=== PATIENT | female | born 1935 | race Caucasian/White ===

== ENCOUNTER 2020-07-17 01:33 | Inpatient (IN) | payer OTHER ==
[~2020-07-17] VITALS: Ht 157.5 cm; Wt 61.7 kg
[2020-07-17] MEDS ORDERED: AMLODIPINE BESY10 MG PO (01:58)
[2020-07-17] MEDS ORDERED: VITAMIN D31250 MCG PO (02:03)
[2020-07-17] MEDS ORDERED: ISOSORBIDE MONO30 MG PO (02:05)
[2020-07-17] MEDS ORDERED: GABAPENTIN600 MG PO (02:05)
[2020-07-17] MEDS ORDERED: ELIQUIS2.5 MG PO (02:06)
[2020-07-17] MEDS ORDERED: NITROGLYCERIN0.4 MG SL (02:07)
[2020-07-17] MEDS ORDERED: LISINOPRIL40 MG PO (02:08)
[2020-07-17] MEDS ORDERED: IRON325 M1 PO (02:09)
[2020-07-17 03:54] LABS: HEMOGLOBIN 15.9 gm/dl (12.3-15.3); RED BLOOD COUNT 4.95 M/UL (4.00-5.10); WHITE BLOOD COUNT 14.5 K/UL (4.5-11.0)
[2020-07-18 06:16] LABS: RED BLOOD COUNT 4.39 M/UL (4.00-5.10); WHITE BLOOD COUNT 14.8 K/UL (4.5-11.0)
--- NOTE | 2020-07-18 10:05 | NUR ---
NGT DISCONTINUED, PATIENT TOLERATED PROCEDURE WELL, NGT INTACT.
--- NOTE | 2020-07-18 11:52 | NUR ---
PATIET AMBULATED WITH ONE ASSIST APPROXIMATELY 100 FEET, SHE DID VERY WELL STILL A LITTLE UNSTEADY.
[2020-07-19 02:53] LABS: HEMOGLOBIN 12.9 gm/dl (12.3-15.3); RED BLOOD COUNT 4.08 M/UL (4.00-5.10); WHITE BLOOD COUNT 11.2 K/UL (4.5-11.0)
[2020-07-20] MEDS ORDERED: PERCOCET 5/325 T1 EA PO (12:01)
== END 2020-07-20 17:08 | disposition home or self-care (01) | DRG 351 ==
LOC: MED SURG 4 01:45
PROVIDERS: Surgery; ADMIT Internal Medicine
PROC: 0YU60JZ Supplement Left Inguinal Region with Synthetic Substitute, Open Approach (ICD-10-PCS; principal; 2020-07-17 12:45)
DX: K40.30 Unilateral inguinal hernia, with obstruction, without gangrene, not specified as recurrent (principal); K56.609 Unspecified intestinal obstruction, unspecified as to partial versus complete obstruction; N17.9 Acute kidney failure, unspecified; I48.0 Paroxysmal atrial fibrillation; I12.9 Hypertensive chronic kidney disease with stage 1 through stage 4 chronic kidney disease, or unspecified chronic kidney disease; D72.829 Elevated white blood cell count, unspecified; N18.30 Chronic kidney disease, stage 3 unspecified; Z79.01 Long term (current) use of anticoagulants; Z72.0 Tobacco use
CPT/HCPCS: 36415; 71045; 80048; 83605; 85025; 93005; 97110-GP-CQ; 97116; 97116-GP-CQ; 97162; C1781; C9113; J0690; J1100; J2001; J2270; J2370; J2405; J2704; J2710; J3010; J3480; J7120